=== PATIENT | female | born 1965 | race Hispanic/Latino ===

== ENCOUNTER → 2024-06-14 | Outpatient (CLI) | payer BC ==
[2024-06-14 13:05] LABS: BASOPHILS # (AUTO) 0.02 K/uL (0.00-0.20); BASOPHILS % (AUTO) 0.2 % (0.0-5.0); EOSINOPHILS # (AUTO) 0.13 K/uL (0.00-0.70); EOSINOPHILS % (AUTO) 1.2 % (0.0-8.0); IMMATURE GRANULOCYTE ABSOLUTE 0.02 K/uL (0-1); LYMPHOCYTES # (AUTO) 6.2 K/uL (1.0-4.8); LYMPHOCYTES % (AUTO) 55.9 % (21.0-51.0); MEAN CORPUSCULAR HEMOGLOBIN 32.7 pg (27.0-33.0); MEAN CORPUSCULAR HGB CONC 33.6 g/dL (32.0-36.0); MEAN CORPUSCULAR VOLUME 97.1 fL (79-99); MONOCYTES # (AUTO) 0.6 K/uL (0.1-1.0); MONOCYTES % (AUTO) 5.5 % (3.0-13.0); NEUTROPHILS # (AUTO) 4.1 K/uL (1.8-7.7); PLATELET COUNT (AUTO) 230 K/uL (130-400); RED BLOOD CELL COUNT(AUTO) 4.53 MIL/uL (4.00-5.50); RED CELL DISTRIBUTION WIDTH 12.7 % (11.0-15.5); WHITE BLOOD COUNT (AUTO) 11.1 K/uL (4.8-10.8)
[2024-06-14 13:22] LABS: CREATININE 0.8 mg/dL (0.5-1.0); POTASSIUM 3.7 mmol/L (3.5-5.1)
[2024-06-14 14:06] LABS: LYMPHOCYTES % (MANUAL) 44 % (22-44); MAN.DIFF COMMENT-IMPRESSION MANUAL DIFFERENTIAL; MONOCYTES % (MANUAL) 4 % (2-9); PLATELET MORPHOLOGY COMMENT ADEQUATE; REACTIVE LYMPHOCYTES 22 % (0-0); SEGMENTED NEUTROPHILS % 30 % (40-70); TOTAL CELLS COUNTED 100
== END | disposition home or self-care (01) ==
LOC: LAB 06-07 12:50
PROVIDERS: ATTEND Internal Medicine Gastroenterology
DX: D12.0 Benign neoplasm of cecum (principal)
CPT/HCPCS: 36415; 80048; 85025

== ENCOUNTER 2024-08-23 16:00 | Inpatient (IN) | payer BC ==
[~2024-08-23] VITALS: Ht 157.5 cm; Wt 90.9 kg
[2024-08-23 14:47] LABS: BASOPHILS # (AUTO) 0.02 K/uL (0.00-0.20); BASOPHILS % (AUTO) 0.2 % (0.0-5.0); EOSINOPHILS # (AUTO) 0.11 K/uL (0.00-0.70); HEMATOCRIT 42.5 % (36-48); IMMATURE GRANULOCYTE ABSOLUTE 0.02 K/uL (0-1); LYMPHOCYTES # (AUTO) 5.5 K/uL (1.0-4.8); LYMPHOCYTES % (AUTO) 48.8 % (21.0-51.0); MEAN CORPUSCULAR HEMOGLOBIN 32.5 pg (27.0-33.0); MEAN CORPUSCULAR HGB CONC 32.9 g/dL (32.0-36.0); MEAN CORPUSCULAR VOLUME 98.6 fL (79-99); MONOCYTES # (AUTO) 0.7 K/uL (0.1-1.0); NEUTROPHILS # (AUTO) 4.9 K/uL (1.8-7.7); NEUTROPHILS % (AUTO) 43.8 % (40.0-77.0); PLATELET COUNT (AUTO) 260 K/uL (130-400); RED BLOOD CELL COUNT(AUTO) 4.31 MIL/uL (4.00-5.50); RED CELL DISTRIBUTION WIDTH 13.2 % (11.0-15.5); WHITE BLOOD COUNT (AUTO) 11.3 K/uL (4.8-10.8)
[2024-08-23 14:59] LABS: PROTHROMBIN TIME 10.8 SEC (9.6-11.6)
[2024-08-23 15:01] LABS: PARTIAL THROMBOPLASTIN TIME 25.7 SEC (26.3-35.5)
[2024-08-23 15:02] LABS: ALBUMIN 3.8 g/dL (3.5-5.0); BILIRUBIN,TOTAL 0.6 mg/dL (0.2-1.0); CREATININE 0.8 mg/dL (0.5-1.0); POTASSIUM 4.1 mmol/L (3.5-5.1); TOTAL PROTEIN, SERUM 8.7 g/dL (6.0-8.3)
[2024-08-23 15:06] VITALS: BP 128/75; PULSE 57; RESP 16; TEMP 98.2
[~2024-08-23 16:00] MED LIST: AMLO-257 PO; ATOR40TA71 PO; DAPA10TA PO; ERGO500093 PO; FLUO-418 PO; LOSA1TAB42 PO; METF-444 PO
[2024-08-23 17:09] LABS: BAND NEUTROPHILS % (MANUAL) 3 % (0-2); EOSINOPHILS % (MANUAL) 1 % (1-6); LYMPHOCYTES % (MANUAL) 36 % (22-44); MAN.DIFF COMMENT-IMPRESSION MANUAL DIFFERENTIAL; MONOCYTES % (MANUAL) 1 % (2-9); REACTIVE LYMPHOCYTES 3 % (0-0); SEGMENTED NEUTROPHILS % 56 % (40-70); TOTAL CELLS COUNTED 100
[2024-08-23 17:10] LABS: WBC MORPHOLOGY IMMATURE LYMPHS 1+
[2024-08-25] VITALS (25 sets, daily range): BP systolic 114–149; BP diastolic 63–96; PULSE 58–86; RESP 11–19; TEMP 97–98.6; O2SAT 96–98
[2024-08-25] MEDS ORDERED: BUPIvacaine/PF 0.5% 30ML VIAL ONE (10:39)
[2024-08-25] MEDS ORDERED: LIDOCAINE 1%-EPI 1:100,000 20 ML VIAL ONE (10:39)
[2024-08-25] MEDS ORDERED: LIDOCAINE PF 100MG/5ML (2%) SYRINGE 5ML ONE (11:24)
[2024-08-25] MEDS ORDERED: dexaMETHasone SOD PHOSPHATE 10MG/ML 1ML VIAL ONE (11:24)
[2024-08-25] MEDS ORDERED: SUCCINYLCHOLINE CHLORIDE 20 MG/ML 10 ML VIAL ONE (11:25)
[2024-08-25] MEDS ORDERED: ondanSETRON 4MG INJ ONE (11:25)
[2024-08-25] MEDS ORDERED: rocuRONium bROMide 10MG/1ML 5ML VL ONE (11:25)
[2024-08-25] MEDS ORDERED: MIDAZOLAM HCL 1 MG/ML 2ML VIAL ONE (11:25)
[2024-08-25] MEDS ORDERED: GLYCOPYRROLATE 0.2 MG/ML 5 ML VIAL ONE (11:25)
[2024-08-25] MEDS ORDERED: NEOSTIGMINE METHYLSULFATE 1MG/ML IV ONE (11:25)
[2024-08-25] MEDS ORDERED: proPOFol 10 MG/ML 20ML VIAL IV ONE (11:25)
[2024-08-25] MEDS ORDERED: FENTanyl CITRate PF 50 MCG/1 ML 2ML VIAL ONE ×2 (11:26→14:58)
[2024-08-25] MEDS ORDERED: ketaMINE 50MG/ML SYRINGE 50 MG/ML DISP.SYRIN ONE (11:46)
[2024-08-25] MEDS: FAMOTIDINE 20MG VIAL IV ONE (11:50)
[2024-08-25] MEDS ORDERED: ondanSETRON 4MG INJ IVP PRN (12:30)
[2024-08-25] MEDS ORDERED: morPHINE 2 MG SYG IV PRN (12:30)
[2024-08-25] MEDS: LIDOCAINE 1%-EPI 1:100,000 20 ML VIAL IJ ONE (12:46)
[2024-08-25] MEDS ORDERED: ATROPINE 0.4MG VIAL IJ ONE (12:52)
[2024-08-25] MEDS: MEPERIDINE-PF 25 MG/ML SYG ONE ×2 (16:20→16:36)
[2024-08-25] MEDS: FAMOTIDINE 20MG VIAL IV SCH (21:48)
[2024-08-26] VITALS (7 sets, daily range): BP systolic 97–130; BP diastolic 50–74; PULSE 50–82; RESP 17–20; TEMP 97.9–98.4; O2SAT 96–97
[2024-08-26 04:19] LABS: HEMATOCRIT 37.6 % (36-48); IMMATURE GRANULOCYTE ABSOLUTE 0.03 K/uL (0-1); LYMPHOCYTES # (AUTO) 3.1 K/uL (1.0-4.8); LYMPHOCYTES % (AUTO) 29.5 % (21.0-51.0); MEAN CORPUSCULAR HEMOGLOBIN 32.7 pg (27.0-33.0); MEAN CORPUSCULAR HGB CONC 33.8 g/dL (32.0-36.0); MEAN CORPUSCULAR VOLUME 96.9 fL (79-99); MONOCYTES # (AUTO) 0.6 K/uL (0.1-1.0); MONOCYTES % (AUTO) 5.3 % (3.0-13.0); NEUTROPHILS # (AUTO) 6.8 K/uL (1.8-7.7); NEUTROPHILS % (AUTO) 64.9 % (40.0-77.0); PLATELET COUNT (AUTO) 214 K/uL (130-400); RED BLOOD CELL COUNT(AUTO) 3.88 MIL/uL (4.00-5.50); RED CELL DISTRIBUTION WIDTH 13.2 % (11.0-15.5); WHITE BLOOD COUNT (AUTO) 10.4 K/uL (4.8-10.8)
[2024-08-26 04:36] LABS: POTASSIUM 4.8 mmol/L (3.5-5.1)
[2024-08-26] MEDS: acetaMINOPHEN 325 MG TAB PO PRN (06:59)
[2024-08-26] MEDS: 0.9%NACL 1000ML 1,000 ML IV ONE (07:26)
[2024-08-26] MEDS: INVANZ 1GM+NS 50ML IVPB 50 ML IV ONE (07:26)
[2024-08-26] MEDS: INDOCYANINE GREEN 25 MG VIAL IJ ONE (07:26)
[2024-08-26] MEDS: D5W-1/2 NS/20MEQ KCL 1,000 ML IV SCH (07:26)
[2024-08-26] MEDS: INSULIN humuLIN R 100 UNIT/ML 3ML SQ PRN (07:33)
[2024-08-26] MEDS: hydroCHLOROthiazide 25 MG TABLET PO SCH (09:19)
[2024-08-26] MEDS: ENOXAPARIN SODIUM 40 MG/0.4 ML SYRINGE SQ SCH (09:19)
[2024-08-26] MEDS: LoSARTan 100 MG TABLET PO SCH (09:19)
[2024-08-26] MEDS: atorVAStatin 40 MG TABLET PO SCH (09:19)
[2024-08-26] MEDS: amLODIPine 5 MG TAB PO SCH (09:20)
[2024-08-26] MEDS: FLUoxetine HCL 20 MG CAPSULE PO SCH (09:20)
[2024-08-26] MEDS: HYDROcodone/APAP 5/325 1 TAB TABLET PO PRN (12:07)
[2024-08-26] MEDS: BisaCODYL 10 MG SUPP.RECT RC ONE (14:40)
[2024-08-26] MEDS: SIMETHICONE 80 MG TAB.CHEW PO PRN (14:40)
[2024-08-26] MEDS: morPHINE 4 MG SYG IV PRN (20:43)
[2024-08-27] VITALS: BP 96/55; PULSE 51; RESP 16; TEMP 98
[2024-08-27 04:00] VITALS: BP 96/56; PULSE 52; RESP 18; TEMP 97.9
[2024-08-27 05:15] LABS: BASOPHILS # (AUTO) 0.02 K/uL (0.00-0.20); BASOPHILS % (AUTO) 0.2 % (0.0-5.0); EOSINOPHILS # (AUTO) 0.07 K/uL (0.00-0.70); EOSINOPHILS % (AUTO) 0.6 % (0.0-8.0); HEMATOCRIT 34.3 % (36-48); IMMATURE GRANULOCYTE ABSOLUTE 0.04 K/uL (0-1); LYMPHOCYTES % (AUTO) 45.8 % (21.0-51.0); MEAN CORPUSCULAR HEMOGLOBIN 32.7 pg (27.0-33.0); MEAN CORPUSCULAR HGB CONC 33.5 g/dL (32.0-36.0); MEAN CORPUSCULAR VOLUME 97.4 fL (79-99); MONOCYTES # (AUTO) 0.7 K/uL (0.1-1.0); MONOCYTES % (AUTO) 6.7 % (3.0-13.0); NEUTROPHILS % (AUTO) 46.3 % (40.0-77.0); PLATELET COUNT (AUTO) 201 K/uL (130-400); RED BLOOD CELL COUNT(AUTO) 3.52 MIL/uL (4.00-5.50); RED CELL DISTRIBUTION WIDTH 13.5 % (11.0-15.5); WHITE BLOOD COUNT (AUTO) 10.8 K/uL (4.8-10.8)
[2024-08-27 05:23] LABS: CREATININE 1.1 mg/dL (0.5-1.0); POTASSIUM 3.5 mmol/L (3.5-5.1)
[2024-08-27 08:00] VITALS: BP_SYST 100; BP_SYST 141; BP_DIAS 61; BP_DIAS 68; PULSE 52; PULSE 58; RESP 14; RESP 15; TEMP 98.2; TEMP 98.3; O2SAT 95
[2024-08-27] MEDS: BisaCODYL 10 MG SUPP.RECT RC ONE (10:03)
[2024-08-27 12:00] VITALS: BP 90/49; PULSE 53; RESP 14; TEMP 98.2
[2024-08-27] MEDS: HYDROcodone/APAP 5/325 1 TAB TABLET PO PRN (13:40)
[2024-08-27] MEDS ORDERED: NYST15PO3 TP (14:32)
[2024-08-27] MEDS ORDERED: ACET325T51 PO (14:32)
== END 2024-08-27 14:45 | disposition home or self-care (01) | DRG 331 ==
LOC: DAHIP 08-25 08:25 → 4DH 08-25 17:00
PROVIDERS: ADMIT Surgery; ATTEND Surgery
PROC: 8E0W4CZ Robotic Assisted Procedure of Trunk Region, Percutaneous Endoscopic Approach (ICD-10-PCS; 2024-08-25)
PROC: 0DTF4ZZ Resection of Right Large Intestine, Percutaneous Endoscopic Approach (ICD-10-PCS; principal; 2024-08-25 11:55)
DX: K63.5 Polyp of colon (principal); E78.5 Hyperlipidemia, unspecified; I10 Essential (primary) hypertension; F41.9 Anxiety disorder, unspecified; E11.9 Type 2 diabetes mellitus without complications; Z90.49 Acquired absence of other specified parts of digestive tract
CPT/HCPCS: 36415; 80048; 80053; 82948; 84703; 85025; 85610; 85730; 86850; 86900; 86901; 93005; A4344; A4606; G0378; J0330; J0461; J1100; J1335; J1650; J1815; J2002; J2175; J2250; J2270; J2405; J2704; J2710; J3010; J3480; J3490; J7030; J7120; A4215; A4216; A4221; A4222; A4223; A4600; A4649; A4657; A4663; A6260; C1769; J0665